=== PATIENT | male | born 1955 | race Caucasian/White ===

== ENCOUNTER 2017-06-23 16:46 | Inpatient (IN) | payer SELFPAY ==
[~2017-06-23] VITALS: Ht 175.3 cm; Wt 65.8 kg
--- NOTE | 2017-06-23 16:54 | PHYS DOC ---
Adult General Chief Complaint Chief Complaint: SHORTNESS OF BREATH HPI HPI Patient is a 61 year old male who presents with shortness of breath. He states he has a history of COPD and was on oxygen prior but hasn't been on it for a while since he said [facility] deformity did not need that or his inhalers any more. He denies any chest pain fevers chills nausea or vomiting. States his symptoms started about 30 minutes ago. He presents to ER with O2 sat of 79% on room air. Review of Systems Review of Systems Constitutional: Denies fever or chills [] Eyes: Denies change in visual acuity, redness, or eye pain [] HENT: Denies nasal congestion or sore throat [] Respiratory: Denies cough or positive for shortness of breath [] Cardiovascular: No additional information not addressed in HPI [] GI: Denies abdominal pain, nausea, vomiting, bloody stools or diarrhea [] : Denies dysuria or hematuria [] Musculoskeletal: Denies back pain or joint pain [] Integument: Denies rash or skin lesions [] Neurologic: Denies headache, focal weakness or sensory changes [] Endocrine: Denies polyuria or polydipsia [] All other systems were reviewed and found to be within normal limits, except as documented in this note. Current Medications Current Medications Current Medications Medications (Trade) Dose Ordered Sig/Becky Start Time Stop Time Status Last Admin Dose Admin Albuterol/ Ipratropium (Duoneb) 3 ml 1X ONCE 06/23/17 17:15 06/23/17 17:17 DC 06/23/17 17:23 3 ML Azithromycin 250 ml @ 250 mls/hr 1X ONCE 06/23/17 18:15 06/23/17 19:14 Methylprednisolone Sodium Succinate (SOLU-Medrol 125MG VIAL) 125 mg 1X ONCE 06/23/17 17:15 06/23/17 17:17 DC 06/23/17 17:56 125 MG Allergies Allergies Allergies Coded Allergies Type Severity Reaction Last Updated Verified No Known Drug Allergies 06/23/17 No Physical Exam Physical Exam Constitutional: Well developed, well nourished, no acute distress, non-toxic appearance. [] HENT: Normocephalic, atraumatic, bilateral external ears normal, oropharynx moist, no oral exudates, nose normal. [] Eyes: PERRLA, EOMI, conjunctiva normal, no discharge. [] Neck: Normal range of motion, no tenderness, supple, no stridor. [] Cardiovascular:Heart rate regular rhythm, no murmur [] Lungs & Thorax: Crease breath sounds on the right, left coarse with mild expiratory wheezing Abdomen: Bowel sounds normal, soft, no tenderness, no masses, no pulsatile masses. [] Skin: Warm, dry, no erythema, no rash. [] Back: No tenderness, no CVA tenderness. [] Extremities: No tenderness, no cyanosis, no clubbing, ROM intact, no edema. [] Neurologic: Alert and oriented X 3, normal motor function, normal sensory function, no focal deficits noted. [] Psychologic: Affect normal, judgement normal, mood normal. [] Current Patient Data Vital Signs Vital Signs Date Time Temp Pulse Resp B/P (MAP) Pulse Ox O2 Delivery O2 Flow Rate FiO2 06/23/17 17:20 94 Nasal Cannula 2.0 06/23/17 16:47 98.3 75 26 162/96 (118) 98.3 Lab Values Laboratory Tests Test 06/23/17 16:58 06/23/17 17:10 O2 Saturation 97 % (92-99) Arterial Blood pH 7.42 (7.35-7.45) Arterial Blood pCO2 at Patient Temp 51 mmHg (35-46) H Arterial Blood pO2 at Patient Temp 97 mmHg (65-108) Arterial Blood HCO3 32 mmol/L (21-28) H Arterial Blood Base Excess 6 mmol/L (-3-3) H FiO2 36.0 White Blood Count 7.0 x10^3/uL (4.0-11.0) Red Blood Count 5.38 x10^6/uL (4.30-5.70) Hemoglobin 15.1 g/dL (13.0-17.5) Hematocrit 47.8 % (39.0-53.0) Mean Corpuscular Volume 89 fL (79-100) Mean Corpuscular Hemoglobin 28 pg (25-35) Mean Corpuscular Hemoglobin Concent 32 g/dL (31-37) Red Cell Distribution Width 16.1 % (11.5-14.5) H Platelet Count 201 x10^3/uL (140-400) Neutrophils (%) (Auto) 79 % (31-73) H Lymphocytes (%) (Auto) 13 % (24-48) L Monocytes (%) (Auto) 5 % (0-9) Eosinophils (%) (Auto) 1 % (0-3) Basophils (%) (Auto) 1 % (0-3) Neutrophils # (Auto) 5.6 x10^3uL (1.8-7.7) Lymphocytes # (Auto) 0.9 x10^3/uL (1.0-4.8) L Monocytes # (Auto) 0.4 x10^3/uL (0.0-1.1) Eosinophils # (Auto) 0.1 x10^3/uL (0.0-0.7) Basophils # (Auto) 0.1 x10^3/uL (0.0-0.2) Sodium Level 142 mmol/L (136-145) Potassium Level 3.7 mmol/L (3.5-5.1) Chloride Level 105 mmol/L (98-107) Carbon Dioxide Level 34 mmol/L (21-32) H Anion Gap 3 (6-14) L Blood Urea Nitrogen 17 mg/dL (8-26) Creatinine 1.0 mg/dL (0.7-1.3) Estimated GFR (Cockcroft-Gault) 76.5 Glucose Level 73 mg/dL (70-99) Calcium Level 8.6 mg/dL (8.5-10.1) Magnesium Level 1.8 mg/dL (1.8-2.4) Total Bilirubin 0.8 mg/dL (0.2-1.0) Direct Bilirubin 0.3 mg/dL (0.0-0.2) H Aspartate Amino Transferase (AST) 36 U/L (15-37) Alanine Aminotransferase (ALT) 133 U/L (16-63) H Alkaline Phosphatase 69 U/L (46-116) Creatine Kinase 121 U/L (39-308) Creatine Kinase MB (Mass) 2.6 ng/mL (0.0-3.6) Creatine Kinase MB Relative Index 2.1 % (0-4) Troponin I Quantitative < 0.017 ng/mL (0.000-0.055) EH-Bad-X-Type Natriuretic Peptide 5402 pg/mL (0-124) H Total Protein 7.2 g/dL (6.4-8.2) Albumin 2.8 g/dL (3.4-5.0) L Thyroid Stimulating Hormone (TSH) 2.549 uIU/mL (0.358-3.74) Laboratory Tests 06/23/17 17:10 Laboratory Tests 06/23/17 17:10 EKG EKG G shows sinus rhythm with rate of [address] elevations, T-wave inversions noted in leads 2,3, aVF, right axis deviation noted, QTC 4 and 31 ms , as interpreted by me. Radiology/Procedures Radiology/Procedures Chest x-ray did not show any focal consolidations, bony abnormality's, pneumothorax, as interpreted by me. Impressions: Hypoxemia COPD exacerbation Course & Med Decision Making Course & Med Decision Making Pertinent Labs and Imaging studies reviewed. (See chart for details) Presented to the room air sat a 75%. He was put on 4 L an ABG was obtained. It was dropped back down to 2 L. He does not want to stay in the hospital so walking desat was performed and he dropped down to 83% on room air. He was given Solu-Medrol and azithromycin and DuoNeb nebs. He is on 2 L and resting comfortable at this time. He is being admitted to the hospitalist with pulmonary consultation. He is in stable condition at this time. Dragon Disclaimer Dragon Disclaimer This electronic medical record was generated, in whole or in part, using a voice recognition dictation system. Departure Departure Impression: Primary Impression: Hypoxia Disposition: 09 ADMITTED INPATIENT Admitting Physician: Other Condition: STABLE MELIA GAN MD Jun 23, 2017 16:54
[2017-06-23 17:11] LABS: HCO3 ABG 32 mmol/L (21-28); PCO2 ABG 51 mmHg (35-46); PH ABG 7.42 (7.35-7.45); PO2 ABG 97 mmHg (65-108); SAT O2 ABG 97 % (92-99)
[2017-06-23] MEDS ORDERED: methylPREDNISolone SOD SUCC PF 125 MG/2 ML VIAL. IV ONE (17:15)
[2017-06-23] MEDS ORDERED: IPRATRPIUM/ALBUTEROL 0.5/2.5MG 3 ML NEBU. NEB ONE (17:15)
[2017-06-23 17:22] LABS: BASO # 0.1 x10^3/uL (0.0-0.2); BASO % 1 % (0-3); EOS % 1 % (0-3); HEMATOCRIT 47.8 % (39.0-53.0); HEMOGLOBIN 15.1 g/dL (13.0-17.5); LYMPH # 0.9 x10^3/uL (1.0-4.8); LYMPH % 13 % (24-48); MEAN CORPUSCULAR HEMOGLOBIN 28 pg (25-35); MEAN CORPUSCULAR HGB CONC 32 g/dL (31-37); MEAN CORPUSCULAR VOLUME 89 fL (79-100); MONO % 5 % (0-9); NEUT % 79 % (31-73); PLATELET COUNT 201 x10^3/uL (140-400); RED BLOOD COUNT 5.38 x10^6/uL (4.30-5.70); RED CELL DISTRIBUTION WIDTH 16.1 % (11.5-14.5)
[2017-06-23 17:35] LABS: CALCIUM 8.6 mg/dL (8.5-10.1); GFR 76.5; POTASSIUM 3.7 mmol/L (3.5-5.1)
[2017-06-23 17:40] LABS: ALBUMIN 2.8 g/dL (3.4-5.0); DIRECT BILIRUBIN 0.3 mg/dL (0.0-0.2); MAGNESIUM 1.8 mg/dL (1.8-2.4); TOTAL BILIRUBIN 0.8 mg/dL (0.2-1.0); TOTAL PROTEIN 7.2 g/dL (6.4-8.2)
[2017-06-23 17:48] LABS: CKMB MASS 2.6 ng/mL (0.0-3.6)
[2017-06-23] MEDS ORDERED: AZITHRMYCN 500MG IVPB FOR OMNI 250 ML IV ONE (18:15)
[2017-06-23] MEDS ORDERED: ONDANSETRON PF 4 MG/2 ML VIAL. IV PRN (19:15)
[2017-06-23] MEDS ORDERED: ALBUTEROL SULFATE 2.5 MG/3 ML NEBU. NEB PRN (19:15)
[2017-06-23] MEDS ORDERED: GUAI600T47 PO (20:13)
[2017-06-23] MEDS ORDERED: IBUP100T7 PO (20:13)
[2017-06-23] MEDS ORDERED: PNEUMOCOCCAL VAX SCREEN BY RX. MC PRN (20:45)
[2017-06-23 21:00] VITALS: BP 131/90
--- NOTE | 2017-06-23 22:50 | HP ---
ADMIT DATE: 06/23/2017 CHIEF COMPLAINT: Shortness of breath. HISTORY OF PRESENT ILLNESS: The patient is a 61-year-old ex-smoker with COPD, who presented to the Emergency Room with a 2-day history of increased shortness of breath on exertion. He states that he had gone to in the past, had been diagnosed with COPD and actually had been placed on oxygen, which he no longer has. He also ran out of the inhalers as he no longer follows up and has not needed it for quite a while. He started having increased dyspnea on exertion about 2 days ago. Today, when he went to the grocery store, he had difficulties moving for any length of distance without having to stop and catch his breath. It took him quite a while to get through the store and go home and he decided to come to the Emergency Room at that time. In the Emergency Room, pulse ox on room air was 79 and chest x-ray was essentially clear showing signs of COPD with flattened hemidiaphragms. He was therefore admitted with COPD exacerbation. On further questioning, he relates that he has had episodes of leg swelling and this has been going on for months already and his brother had been advising him to limit salt intake. He denies ever having any heart history or any other medical problems. PAST MEDICAL HISTORY: COPD. FAMILY HISTORY: Grandfather with stroke. 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 Quit smoking 2 years ago. No alcohol, no drugs. ALLERGIES: No known drug allergies. MEDICATIONS: MAR reconciled with home medications. REVIEW OF SYSTEMS: Positive as per HPI. Rest of organ system review is negative. PHYSICAL EXAMINATION: VITAL SIGNS: Show blood pressure of 162/96, heart rate of 75, respiratory rate at 26, satting 75 on room air, 94 on 2 liters. He is afebrile. GENERAL: This is an ill-appearing 61-year-old gentleman, awake, alert, in mild distress. HEENT: Shows no scleral icterus. Oral mucosa is pink and moist. Dentition is poor. NECK: Supple. LUNGS: Clear, but have poor air movement bilaterally. HEART: Has regular rate and rhythm. ABDOMEN: Has positive bowel sounds, soft, nontender. EXTREMITIES: Show 2+ edema symmetrically bilaterally in lower extremities. SKIN: Warm, soft and dry without any rash. LABORATORY DATA: CBC with a WBC of 7.0, hemoglobin 15, platelets of 201. Chemistries with a BUN and creatinine of 17 and 1, normal electrolytes, CO2 at 34. LFTs within normal limits. ProBNP 5402, albumin at 2.8. Initial troponin is negative. IMAGING: Chest x-ray reviewed by myself showed mild cephalization, otherwise clear lung fair and flattened hemidiaphragms. ASSESSMENT AND PLAN: The patient is a 61-year-old ex-smoker, presenting with chronic obstructive pulmonary disease exacerbation, possibly brought on by upper respiratory infection that he has been nursing for the past week. He has been started on steroids, nebulizers and oxygen with improvement of his symptoms. Pulmonary consult will be obtained in the morning. The patient does have some mild symptoms of congestive heart failure. There is no heart history. We will obtain echocardiogram and cardiac consult in the morning to elucidate his status. Other labs show significant malnutrition with an albumin of only 2.8, although this may be partially affected by inflammation from bronchitis/chronic obstructive pulmonary disease. We will supplement his food intake with protein supplements. DELPHINE SCHULTZ MD DR: JAXSON/jens JOB#: [id number] / [id number] [place]
[2017-06-23 23:00] VITALS: BP 116/75
[2017-06-24 03:00] VITALS: BP 129/81
[2017-06-24 03:04] LABS: BASO % 0 % (0-3); EOS % 0 % (0-3); HEMATOCRIT 49.7 % (39.0-53.0); HEMOGLOBIN 15.7 g/dL (13.0-17.5); LYMPH # 0.3 x10^3/uL (1.0-4.8); LYMPH % 5 % (24-48); MEAN CORPUSCULAR HEMOGLOBIN 28 pg (25-35); MEAN CORPUSCULAR HGB CONC 32 g/dL (31-37); MEAN CORPUSCULAR VOLUME 89 fL (79-100); MONO % 1 % (0-9); NEUT % 94 % (31-73); PLATELET COUNT 201 x10^3/uL (140-400); RED BLOOD COUNT 5.57 x10^6/uL (4.30-5.70); RED CELL DISTRIBUTION WIDTH 16.9 % (11.5-14.5); WHITE BLOOD COUNT 5.3 x10^3/uL (4.0-11.0)
[2017-06-24 03:07] LABS: CALCIUM 8.2 mg/dL (8.5-10.1); GFR 76.5; POTASSIUM 4.6 mmol/L (3.5-5.1)
[2017-06-24 03:33] LABS: ANISOCYTOSIS SLIGHT; PLT ESTIMATE ADEQUATE (ADEQUATE); POIKILOCYTOSIS SLIGHT
--- NOTE | 2017-06-24 06:12 | EKG ---
[facility] [address] [place] [address] Test Date: 2017-06-23 Test Time: 17:37:23 Pat Name: NOLVIA SCHULTE Department: Room: 524 1 Gender: M Manager Pricing: : [phone] Requested By: MELIA GAN Order Number: [id number] Reading MD: Pilo Regan MD Measurements Intervals Davilla Rate: 61 P: 90 AR: 142 QRS: 141 QRSD: 104 T: -54 QT: 422 QTc: 431 Interpretive Statements SINUS RHYTHM LAE POOR R-WAVE PROGRESSION LIMB LEAD MISPLACEMENT Electronically Signed On 06-25-2017 16:35:06 COLLECTIONS AND ARCHIVES DIRECTOR by Pilo Regan MD
[2017-06-24 07:00] VITALS: BP 130/83
--- NOTE | 2017-06-24 08:35 | RAD ---
EXAM: Chest one view. HISTORY: Shortness of breath. COMPARISON: None. FINDINGS: A frontal view of the chest is obtained. Hyperinflation is consistent with chronic obstructive pulmonary disease. There are trace interstitial opacities in the bases. Small pleural effusions are suspected. There is no pneumothorax. Enlargement of the pulmonary arteries suggests pulmonary arterial hypertension. The heart is not enlarged. IMPRESSION: 1. Correlate for mild volume overload and trace pulmonary edema. 2. Chronic obstructive pulmonary disease with findings suggesting pulmonary arterial hypertension.
[2017-06-24] MEDS ORDERED: PNEUMOC CONJ VACC 23-VALENT 0.5 ML VIAL. VAX IM ONE (09:00)
[2017-06-24] MEDS ORDERED: PNEUMOCOCCAL VAX SCREEN BY RX. MC ONE (09:00)
--- NOTE | 2017-06-24 10:00 | CARD ---
APPROVED REPORT EXAM: Two-dimensional and M-mode echocardiogram with Doppler and color Doppler. Other Information Quality : Good INDICATION Acute NH 2D DIMENSIONS RVDd4.8 (2.9-3.5cm)Left Atrium(2D)3.4 (1.6-4.0cm) IVSd1.3 (0.7-1.1cm)Aortic Root(2D)2.9 (2.0-3.7cm) LVDd3.9 (3.9-5.9cm)LVOT Diameter2.0 (1.8-2.4cm) PWd1.2 (0.7-1.1cm)LVDs2.7 (2.5-4.0cm) FS (%) 30.5 %SV37.5 ml LVEF(%)58.6 (>50%) Aortic Valve AoV Peak Angel.102.9cm/sAoV VTI18.7cm AO Peak GR.4.2mmHgLVOT Peak Angel.97.0cm/s AO Mean GR.2mmHgAVA (VMAX)2.94cm2 NIA (VTI)2.80cm2 Mitral Valve MV E Unnqgtny43.0cm/sMV DECEL [id number] MV A [place]50.9cm/sE/A Ratio0.8 Tricuspid Valve TR P. Vaeuhcin051jm/sRAP AFNVQMEI8gcXm TR Peak Gr.[id number] LEFT VENTRICLE The left ventricle is normal size. There is mild concentric left ventricular hypertrophy. Left ventri doroteo systolic function is normal. The Ejection Fraction is 55%. Flattened interventricular septum cons istent right ventricle pressure/volume overload. Transmitral Doppler flow pattern is Grade I-abnormal relaxation pattern. RIGHT VENTRICLE The right ventricle is severely dilated. The right ventricular systolic function is normal. ATRIA The left atrium size is normal. The right atrium is severely dilated. Interatrial septum bowed toward the left, consistent with elevated right atrial pressures. AORTIC VALVE The aortic valve is calcified but opens well. Doppler and Color Flow revealed no significant aortic r egurgitation. There is no significant aortic valvular stenosis. MITRAL VALVE The mitral valve is calcified but opens well. There is no evidence of mitral valve prolapse. There is no mitral valve stenosis. Doppler and Color-flow revealed mild mitral regurgitation. TRICUSPID VALVE The tricuspid valve is normal in structure. Doppler and Color Flow revealed mild to moderate tricuspi d regurgitation. There is mild pulmonary hypertension. The PA pressure was estimated at 33 mmHg. Ther e is no tricuspid valve prolapse or vegetation. PULMONIC VALVE The pulmonic valve is mildly thickened. Doppler and Color Flow revealed mild pulmonic valvular regurg itation. There is no pulmonic valvular stenosis. GREAT VESSELS The aortic root is normal in size. The ascending aorta is normal in size. IVC apears dilated. PERICARDIAL EFFUSION There is no pleural effusion. There is no evidence of significant pericardial effusion. Critical Notification Critical Value: No <Conclusion> Left ventricle systolic function is normal. The Ejection Fraction is 55%. Flattened interventricular septum consistent right ventricle pressure/volume overload. Transmitral Doppler flow pattern is Grade I-abnormal relaxation pattern. The right ventricle is severely dilated. Mild mitral regurgitation. Mild to moderate tricuspid regurgitation. The PA pressure was estimated at 33 mmHg. There is no evidence of significant pericardial effusion.
--- NOTE | 2017-06-24 10:07 | PDOC2 ---
LULIValdemarHARRY Mikayla BURRING WHEEL OPERATOR 06/24/17 1007: CARDIAC CONSULT DATE OF CONSULT Date of Consult DATE: 06/24/17 TIME: 10:05 REASON FOR CONSULT Reason for Consult: ?CHF REFERRING PHYSICIAN Referring Physician: Miguel SOURCE Source: Chart review, Patient HISTORY OF PRESENT ILLNESS HISTORY OF PRESENT ILLNESS This is a pleasant 61 yo male admitted for complains of cSOA. Reports that in the past week, he reports that the distance of ambulation has decreased due to ASHLEY. Reports no CP, palpitations, nausea, chest pain. Denies any prior CAD, VTE. No recent infection, fever chills, and falls, injury or recent orthopaedic surgery,. In the last week he also noticed that both of his legs have became more swollen and tight. The right leg has more redness and tender. He does have COPD but untreated,. He has OA which he takes advil 40 mg bid otherwise he does not take any medications. PAST MEDICAL HISTORY Cardiovascular: No pertinent hx Pulmonary: COPD (untreated) CENTRAL NERVOUS SYSTEM: Other (No pertinent history) GI: No pertinent hx Heme/Onc: No pertinent hx Hepatobiliary: No pertinent hx Psych: No pertinent hx Musculoskeletal: Osteoarthritis Rheumatologic: No pertinent hx Infectious disease: No pertinent hx ENT: No pertinent hx Renal/: No pertinent hx Endocrine: No pertinent hx Dermatology: No pertinent hx PAST SURGICAL HISTORY Past Surgical History: No pertinent history FAMILY HISTORY Family History noncontributory to CV and VTE SOCIAL HISTORY Smoke: Quit (38 pk yr quit 2 yrs ago) ALCOHOL: none Drugs: None Lives: with Family (lives with father) CURRENT MEDICATIONS CURRENT MEDICATIONS Current Medications Medications (Trade) Dose Ordered Sig/Becky Route PRN Reason Start Time Stop Time Status Last Admin Dose Admin Albuterol/ Ipratropium (Duoneb) 3 ml 1X ONCE NEB 06/23/17 17:15 06/23/17 17:17 DC 06/23/17 17:23 Methylprednisolone Sodium Succinate (SOLU-Medrol 125MG VIAL) 125 mg 1X ONCE IV 06/23/17 17:15 06/23/17 17:17 DC 06/23/17 17:56 Azithromycin 250 ml @ 250 mls/hr 1X ONCE IV 06/23/17 18:15 06/23/17 19:14 DC 06/23/17 19:11 Pneumococcal Polyvalent Vaccine (Pneumovax 23) 0.5 ml ONCE ONCE VAX IM 06/24/17 09:00 06/24/17 09:01 DC 06/24/17 10:04 ALLERGIES ALLERGIES: Coded Allergies: No Known Drug Allergies (Unverified , 06/23/17) ROS Review of System 14 point ROS evaluated with pertinent positives noted per HPI PHYSICAL EXAM General: Alert, Oriented X3, Cooperative, No acute distress HEENT: Atraumatic Lungs: Other (basilar crackles and diminished) Heart: Regular rate (SR), Normal S1, Normal S2, Other (s4/ 2.6 systolic murmur to LLS border) Abdomen: Soft, No tenderness Extremities: No cyanosis, Other (3+ bilateral LE pitting edema with tenderness and erythema worse to RLE) Skin: No breakdown, No significant lesion Neuro: Normal speech, Sensation intact Psych/Mental Status: Mood NL MUSCULOSKELETAL: Osteoarthritic changes both hands VITALS VITALS Vital Signs Date Time Temp Pulse Resp B/P (MAP) Pulse Ox O2 Delivery O2 Flow Rate FiO2 06/24/17 07:00 97.1 72 18 130/83 (99) 96 Room Air 97.1 06/23/17 20:31 3.0 LABS Lab: Laboratory Tests Test 06/23/17 16:58 06/23/17 17:10 06/24/17 01:10 06/24/17 03:00 O2 Saturation 97 % (92-99) Arterial Blood pH 7.42 (7.35-7.45) Arterial Blood pCO2 at Patient Temp 51 mmHg (35-46) Arterial Blood pO2 at Patient Temp 97 mmHg (65-108) Arterial Blood HCO3 32 mmol/L (21-28) Arterial Blood Base Excess 6 mmol/L (-3-3) FiO2 36.0 White Blood Count 7.0 x10^3/uL (4.0-11.0) 5.3 x10^3/uL (4.0-11.0) Red Blood Count 5.38 x10^6/uL (4.30-5.70) 5.57 x10^6/uL (4.30-5.70) Hemoglobin 15.1 g/dL (13.0-17.5) 15.7 g/dL (13.0-17.5) Hematocrit 47.8 % (39.0-53.0) 49.7 % (39.0-53.0) Mean Corpuscular Volume 89 fL (79-100) 89 fL (79-100) Mean Corpuscular Hemoglobin 28 pg (25-35) 28 pg (25-35) Mean Corpuscular Hemoglobin Concent 32 g/dL (31-37) 32 g/dL (31-37) Red Cell Distribution Width 16.1 % (11.5-14.5) 16.9 % (11.5-14.5) Platelet Count 201 x10^3/uL (140-400) 201 x10^3/uL (140-400) Neutrophils (%) (Auto) 79 % (31-73) 94 % (31-73) Lymphocytes (%) (Auto) 13 % (24-48) 5 % (24-48) Monocytes (%) (Auto) 5 % (0-9) 1 % (0-9) Eosinophils (%) (Auto) 1 % (0-3) 0 % (0-3) Basophils (%) (Auto) 1 % (0-3) 0 % (0-3) Neutrophils # (Auto) 5.6 x10^3uL (1.8-7.7) 4.9 x10^3uL (1.8-7.7) Lymphocytes # (Auto) 0.9 x10^3/uL (1.0-4.8) 0.3 x10^3/uL (1.0-4.8) Monocytes # (Auto) 0.4 x10^3/uL (0.0-1.1) 0.0 x10^3/uL (0.0-1.1) Eosinophils # (Auto) 0.1 x10^3/uL (0.0-0.7) 0.0 x10^3/uL (0.0-0.7) Basophils # (Auto) 0.1 x10^3/uL (0.0-0.2) 0.0 x10^3/uL (0.0-0.2) Sodium Level 142 mmol/L (136-145) 140 mmol/L (136-145) Potassium Level 3.7 mmol/L (3.5-5.1) 4.6 mmol/L (3.5-5.1) Chloride Level 105 mmol/L (98-107) 104 mmol/L (98-107) Carbon Dioxide Level 34 mmol/L (21-32) 34 mmol/L (21-32) Anion Gap 3 (6-14) 2 (6-14) Blood Urea Nitrogen 17 mg/dL (8-26) 19 mg/dL (8-26) Creatinine 1.0 mg/dL (0.7-1.3) 1.0 mg/dL (0.7-1.3) Estimated GFR (Cockcroft-Gault) 76.5 76.5 Glucose Level 73 mg/dL (70-99) 252 mg/dL (70-99) Calcium Level 8.6 mg/dL (8.5-10.1) 8.2 mg/dL (8.5-10.1) Magnesium Level 1.8 mg/dL (1.8-2.4) Total Bilirubin 0.8 mg/dL (0.2-1.0) Direct Bilirubin 0.3 mg/dL (0.0-0.2) Aspartate Amino Transf (AST/SGOT) 36 U/L (15-37) Alanine Aminotransferase (ALT/SGPT) 133 U/L (16-63) Alkaline Phosphatase 69 U/L (46-116) Creatine Kinase 121 U/L (39-308) Creatine Kinase MB (Mass) 2.6 ng/mL (0.0-3.6) Creatine Kinase MB Relative Index 2.1 % (0-4) Troponin I Quantitative < 0.017 ng/mL (0.000-0.055) < 0.017 ng/mL (0.000-0.055) OA-Qyn-N-Type Natriuretic Peptide 5402 pg/mL (0-124) Total Protein 7.2 g/dL (6.4-8.2) Albumin 2.8 g/dL (3.4-5.0) Thyroid Stimulating Hormone (TSH) 2.549 uIU/mL (0.358-3.74) Segmented Neutrophils % 95 % (35-66) Lymphocytes % 4 % (24-48) Monocytes % 1 % (0-10) Platelet Estimate Adequate (ADEQUATE) Poikilocytosis Slight Anisocytosis Slight Test 06/24/17 07:05 Troponin I Quantitative < 0.017 ng/mL (0.000-0.055) ASSESSMENT/PLAN ASSESSMENT/PLAN 1. Dyspnea: TTE with abnormalities indicative of possible PE. EKG SR with RVH. 2. Bilateral LE swelling: Possible thrombophlebitis 3. Acute diastolic CHF: likely superimposed by pulmonary issues 4. AECOPD: unmedicated at home 5. Hyperglycemia: due to steroids. Recommendations 1. CTA chest. venous doppler 2. Consult pulmonary 3. Check lipid panel, TSH 4. Low dose x1 lasix. Problems: BEATRICE DARDEN MD 06/24/17 1226: CARDIAC CONSULT ALLERGIES ALLERGIES: Coded Allergies: No Known Drug Allergies (Unverified , 06/23/17) ASSESSMENT/PLAN ASSESSMENT/PLAN Pt. seen and examined. Agree with above [employer] REP note. Thanks for consultation. Echo with RV dilation but no pulmonary HTN, suspicious for thrombo-embolic disease. Will follow along. Problems: HARRY PARNELL APRN Jun 24, 2017 10:07 BEATRICE DARDEN MD Jun 24, 2017 12:26
[2017-06-24 11:00] VITALS: BP 132/74
[2017-06-24] MEDS ORDERED: FUROSEMIDE 20 MG/2 ML VIAL. IVP ONE (11:00)
[2017-06-24] MEDS ORDERED: HYDROcodone/APAP 5/325MG 1 TAB TABLET PO PRN (11:30)
[2017-06-24] MEDS ORDERED: IOHEXOL 300 MG/ML 100ML VIAL. IV ONE (11:30)
[2017-06-24] MEDS ORDERED: ACETAMINOPHEN 500 MG TABLET PO PRN (11:30)
[2017-06-24] MEDS ORDERED: CONTRAST GIVEN MC PRN (11:30)
[2017-06-24] MEDS ORDERED: ONDANSETRON PF 4 MG/2 ML VIAL. IV PRN (11:30)
[2017-06-24] MEDS ORDERED: IBUPROFEN 400 MG TABLET. PO PRN (11:30)
--- NOTE | 2017-06-24 12:52 | RAD ---
EXAM: CT ANGIOGRAPHY OF THE CHEST WITH AND WITHOUT INTRAVENOUS CONTRAST. HISTORY: Chronic obstructive pulmonary disease, right ventricular hypertrophy. Concern for pulmonary embolism. TECHNIQUE: Computed tomographic angiography of the chest was performed before and after the intravenous administration of 75 mL Omnipaque 300. 3-D maximum intensity projections were also performed. COMPARISON: None. FINDINGS: Images of the upper abdomen reveal no acute abnormality. Bone windows reveal no suspicious lesions. There is respiratory motion artifact in the bases. This limits sensitivity for small peripheral pulmonary emboli in this territory. No pulmonary emboli are seen. The main pulmonary artery is enlarged at 3.6 cm. There is no aortic dissection or aneurysm. There are no pathologically enlarged mediastinal or axillary lymph nodes. There are small bilateral pleural effusions. There is no pericardial effusion. The heart is mildly enlarged in a predominantly right-sided pattern. There is severe centrilobular emphysema. Mild groundglass opacities in the right base may indicate atelectasis or scarring. IMPRESSION: 1. Findings of pulmonary arterial hypertension. No pulmonary embolism. 2. Severe centrilobular emphysema. 3. Mild cardiomegaly. Small bilateral pleural effusions. *One or more of the following individualized dose reduction techniques were utilized for this examination: 1. Automated exposure control. 2. Adjustment of the mA and/or kV according to patient size. 3. Use of iterative reconstruction technique.
--- NOTE | 2017-06-24 13:25 | PDOC ---
PROGRESS NOTES Chief Complaint Chief Complaint 1. COPD exacerbation, prev smoker, acute bronchitis 2. SIRS poa 3. leukocytosis and hyperglycemia on steroids 4. Bilateral LE swelling 5. Acute diastolic HF 6. MIld to mod pcm History of Present Illness History of Present Illness On 2-3 LNC Was not on O2 at home Dec BS, minimal exchange No inc in SOA, CP BS high on solu PLAN: Agree witH CTA and Venous dopplers and pulmo consult Empric abx Ok fo rmucinex Add PT./OT Vitals Vitals Vital Signs Date Time Temp Pulse Resp B/P (MAP) Pulse Ox O2 Delivery O2 Flow Rate FiO2 06/24/17 12:37 94 Nasal Cannula 3.0 06/24/17 11:00 97.4 70 18 132/74 (93) 97.4 Physical Exam General: Alert, Oriented X3, Cooperative, No acute distress Heart: Regular rate (SR), Normal S1, Normal S2, Other (s4/ 2.6 systolic murmur to LLS border) Abdomen: Soft, No tenderness Extremities: No cyanosis, Other (3+ bilateral LE pitting edema with tenderness and erythema worse to RLE) Skin: No breakdown, No significant lesion Labs LABS Laboratory Tests Test 06/23/17 16:58 06/23/17 17:10 06/24/17 01:10 06/24/17 03:00 O2 Saturation 97 % (92-99) Arterial Blood pH 7.42 (7.35-7.45) Arterial Blood pCO2 at Patient Temp 51 mmHg (35-46) Arterial Blood pO2 at Patient Temp 97 mmHg (65-108) Arterial Blood HCO3 32 mmol/L (21-28) Arterial Blood Base Excess 6 mmol/L (-3-3) FiO2 36.0 White Blood Count 7.0 x10^3/uL (4.0-11.0) 5.3 x10^3/uL (4.0-11.0) Red Blood Count 5.38 x10^6/uL (4.30-5.70) 5.57 x10^6/uL (4.30-5.70) Hemoglobin 15.1 g/dL (13.0-17.5) 15.7 g/dL (13.0-17.5) Hematocrit 47.8 % (39.0-53.0) 49.7 % (39.0-53.0) Mean Corpuscular Volume 89 fL (79-100) 89 fL (79-100) Mean Corpuscular Hemoglobin 28 pg (25-35) 28 pg (25-35) Mean Corpuscular Hemoglobin Concent 32 g/dL (31-37) 32 g/dL (31-37) Red Cell Distribution Width 16.1 % (11.5-14.5) 16.9 % (11.5-14.5) Platelet Count 201 x10^3/uL (140-400) 201 x10^3/uL (140-400) Neutrophils (%) (Auto) 79 % (31-73) 94 % (31-73) Lymphocytes (%) (Auto) 13 % (24-48) 5 % (24-48) Monocytes (%) (Auto) 5 % (0-9) 1 % (0-9) Eosinophils (%) (Auto) 1 % (0-3) 0 % (0-3) Basophils (%) (Auto) 1 % (0-3) 0 % (0-3) Neutrophils # (Auto) 5.6 x10^3uL (1.8-7.7) 4.9 x10^3uL (1.8-7.7) Lymphocytes # (Auto) 0.9 x10^3/uL (1.0-4.8) 0.3 x10^3/uL (1.0-4.8) Monocytes # (Auto) 0.4 x10^3/uL (0.0-1.1) 0.0 x10^3/uL (0.0-1.1) Eosinophils # (Auto) 0.1 x10^3/uL (0.0-0.7) 0.0 x10^3/uL (0.0-0.7) Basophils # (Auto) 0.1 x10^3/uL (0.0-0.2) 0.0 x10^3/uL (0.0-0.2) Sodium Level 142 mmol/L (136-145) 140 mmol/L (136-145) Potassium Level 3.7 mmol/L (3.5-5.1) 4.6 mmol/L (3.5-5.1) Chloride Level 105 mmol/L (98-107) 104 mmol/L (98-107) Carbon Dioxide Level 34 mmol/L (21-32) 34 mmol/L (21-32) Anion Gap 3 (6-14) 2 (6-14) Blood Urea Nitrogen 17 mg/dL (8-26) 19 mg/dL (8-26) Creatinine 1.0 mg/dL (0.7-1.3) 1.0 mg/dL (0.7-1.3) Estimated GFR (Cockcroft-Gault) 76.5 76.5 Glucose Level 73 mg/dL (70-99) 252 mg/dL (70-99) Calcium Level 8.6 mg/dL (8.5-10.1) 8.2 mg/dL (8.5-10.1) Magnesium Level 1.8 mg/dL (1.8-2.4) Total Bilirubin 0.8 mg/dL (0.2-1.0) Direct Bilirubin 0.3 mg/dL (0.0-0.2) Aspartate Amino Transf (AST/SGOT) 36 U/L (15-37) Alanine Aminotransferase (ALT/SGPT) 133 U/L (16-63) Alkaline Phosphatase 69 U/L (46-116) Creatine Kinase 121 U/L (39-308) Creatine Kinase MB (Mass) 2.6 ng/mL (0.0-3.6) Creatine Kinase MB Relative Index 2.1 % (0-4) Troponin I Quantitative < 0.017 ng/mL (0.000-0.055) < 0.017 ng/mL (0.000-0.055) XB-Kmi-U-Type Natriuretic Peptide 5402 pg/mL (0-124) Total Protein 7.2 g/dL (6.4-8.2) Albumin 2.8 g/dL (3.4-5.0) Thyroid Stimulating Hormone (TSH) 2.549 uIU/mL (0.358-3.74) Segmented Neutrophils % 95 % (35-66) Lymphocytes % 4 % (24-48) Monocytes % 1 % (0-10) Platelet Estimate Adequate (ADEQUATE) Poikilocytosis Slight Anisocytosis Slight Test 06/24/17 07:05 Troponin I Quantitative < 0.017 ng/mL (0.000-0.055) Review of Systems Review of Systems no inc in soa, cp, coughing, no abd pain or emesis Assessment and Plan Assessmemt and Plan Problems Medical Problems: (1) Hypoxia Status: Acute Problems: Comment Review of Relevant I have reviewed the following items leyda (where applicable) has been applied. Labs Laboratory Tests Test 06/23/17 16:58 06/23/17 17:10 06/24/17 01:10 06/24/17 03:00 O2 Saturation 97 % (92-99) Arterial Blood pH 7.42 (7.35-7.45) Arterial Blood pCO2 at Patient Temp 51 mmHg (35-46) Arterial Blood pO2 at Patient Temp 97 mmHg (65-108) Arterial Blood HCO3 32 mmol/L (21-28) Arterial Blood Base Excess 6 mmol/L (-3-3) FiO2 36.0 White Blood Count 7.0 x10^3/uL (4.0-11.0) 5.3 x10^3/uL (4.0-11.0) Red Blood Count 5.38 x10^6/uL (4.30-5.70) 5.57 x10^6/uL (4.30-5.70) Hemoglobin 15.1 g/dL (13.0-17.5) 15.7 g/dL (13.0-17.5) Hematocrit 47.8 % (39.0-53.0) 49.7 % (39.0-53.0) Mean Corpuscular Volume 89 fL (79-100) 89 fL (79-100) Mean Corpuscular Hemoglobin 28 pg (25-35) 28 pg (25-35) Mean Corpuscular Hemoglobin Concent 32 g/dL (31-37) 32 g/dL (31-37) Red Cell Distribution Width 16.1 % (11.5-14.5) 16.9 % (11.5-14.5) Platelet Count 201 x10^3/uL (140-400) 201 x10^3/uL (140-400) Neutrophils (%) (Auto) 79 % (31-73) 94 % (31-73) Lymphocytes (%) (Auto) 13 % (24-48) 5 % (24-48) Monocytes (%) (Auto) 5 % (0-9) 1 % (0-9) Eosinophils (%) (Auto) 1 % (0-3) 0 % (0-3) Basophils (%) (Auto) 1 % (0-3) 0 % (0-3) Neutrophils # (Auto) 5.6 x10^3uL (1.8-7.7) 4.9 x10^3uL (1.8-7.7) Lymphocytes # (Auto) 0.9 x10^3/uL (1.0-4.8) 0.3 x10^3/uL (1.0-4.8) Monocytes # (Auto) 0.4 x10^3/uL (0.0-1.1) 0.0 x10^3/uL (0.0-1.1) Eosinophils # (Auto) 0.1 x10^3/uL (0.0-0.7) 0.0 x10^3/uL (0.0-0.7) Basophils # (Auto) 0.1 x10^3/uL (0.0-0.2) 0.0 x10^3/uL (0.0-0.2) Sodium Level 142 mmol/L (136-145) 140 mmol/L (136-145) Potassium Level 3.7 mmol/L (3.5-5.1) 4.6 mmol/L (3.5-5.1) Chloride Level 105 mmol/L (98-107) 104 mmol/L (98-107) Carbon Dioxide Level 34 mmol/L (21-32) 34 mmol/L (21-32) Anion Gap 3 (6-14) 2 (6-14) Blood Urea Nitrogen 17 mg/dL (8-26) 19 mg/dL (8-26) Creatinine 1.0 mg/dL (0.7-1.3) 1.0 mg/dL (0.7-1.3) Estimated GFR (Cockcroft-Gault) 76.5 76.5 Glucose Level 73 mg/dL (70-99) 252 mg/dL (70-99) Calcium Level 8.6 mg/dL (8.5-10.1) 8.2 mg/dL (8.5-10.1) Magnesium Level 1.8 mg/dL (1.8-2.4) Total Bilirubin 0.8 mg/dL (0.2-1.0) Direct Bilirubin 0.3 mg/dL (0.0-0.2) Aspartate Amino Transf (AST/SGOT) 36 U/L (15-37) Alanine Aminotransferase (ALT/SGPT) 133 U/L (16-63) Alkaline Phosphatase 69 U/L (46-116) Creatine Kinase 121 U/L (39-308) Creatine Kinase MB (Mass) 2.6 ng/mL (0.0-3.6) Creatine Kinase MB Relative Index 2.1 % (0-4) Troponin I Quantitative < 0.017 ng/mL (0.000-0.055) < 0.017 ng/mL (0.000-0.055) BY-Iws-B-Type Natriuretic Peptide 5402 pg/mL (0-124) Total Protein 7.2 g/dL (6.4-8.2) Albumin 2.8 g/dL (3.4-5.0) Thyroid Stimulating Hormone (TSH) 2.549 uIU/mL (0.358-3.74) Segmented Neutrophils % 95 % (35-66) Lymphocytes % 4 % (24-48) Monocytes % 1 % (0-10) Platelet Estimate Adequate (ADEQUATE) Poikilocytosis Slight Anisocytosis Slight Test 06/24/17 07:05 Troponin I Quantitative < 0.017 ng/mL (0.000-0.055) Laboratory Tests Test 06/23/17 16:58 06/23/17 17:10 06/24/17 01:10 06/24/17 03:00 O2 Saturation 97 % (92-99) Arterial Blood pH 7.42 (7.35-7.45) Arterial Blood pCO2 at Patient Temp 51 mmHg (35-46) Arterial Blood pO2 at Patient Temp 97 mmHg (65-108) Arterial Blood HCO3 32 mmol/L (21-28) Arterial Blood Base Excess 6 mmol/L (-3-3) FiO2 36.0 White Blood Count 7.0 x10^3/uL (4.0-11.0) 5.3 x10^3/uL (4.0-11.0) Red Blood Count 5.38 x10^6/uL (4.30-5.70) 5.57 x10^6/uL (4.30-5.70) Hemoglobin 15.1 g/dL (13.0-17.5) 15.7 g/dL (13.0-17.5) Hematocrit 47.8 % (39.0-53.0) 49.7 % (39.0-53.0) Mean Corpuscular Volume 89 fL (79-100) 89 fL (79-100) Mean Corpuscular Hemoglobin 28 pg (25-35) 28 pg (25-35) Mean Corpuscular Hemoglobin Concent 32 g/dL (31-37) 32 g/dL (31-37) Red Cell Distribution Width 16.1 % (11.5-14.5) 16.9 % (11.5-14.5) Platelet Count 201 x10^3/uL (140-400) 201 x10^3/uL (140-400) Neutrophils (%) (Auto) 79 % (31-73) 94 % (31-73) Lymphocytes (%) (Auto) 13 % (24-48) 5 % (24-48) Monocytes (%) (Auto) 5 % (0-9) 1 % (0-9) Eosinophils (%) (Auto) 1 % (0-3) 0 % (0-3) Basophils (%) (Auto) 1 % (0-3) 0 % (0-3) Neutrophils # (Auto) 5.6 x10^3uL (1.8-7.7) 4.9 x10^3uL (1.8-7.7) Lymphocytes # (Auto) 0.9 x10^3/uL (1.0-4.8) 0.3 x10^3/uL (1.0-4.8) Monocytes # (Auto) 0.4 x10^3/uL (0.0-1.1) 0.0 x10^3/uL (0.0-1.1) Eosinophils # (Auto) 0.1 x10^3/uL (0.0-0.7) 0.0 x10^3/uL (0.0-0.7) Basophils # (Auto) 0.1 x10^3/uL (0.0-0.2) 0.0 x10^3/uL (0.0-0.2) Sodium Level 142 mmol/L (136-145) 140 mmol/L (136-145) Potassium Level 3.7 mmol/L (3.5-5.1) 4.6 mmol/L (3.5-5.1) Chloride Level 105 mmol/L (98-107) 104 mmol/L (98-107) Carbon Dioxide Level 34 mmol/L (21-32) 34 mmol/L (21-32) Anion Gap 3 (6-14) 2 (6-14) Blood Urea Nitrogen 17 mg/dL (8-26) 19 mg/dL (8-26) Creatinine 1.0 mg/dL (0.7-1.3) 1.0 mg/dL (0.7-1.3) Estimated GFR (Cockcroft-Gault) 76.5 76.5 Glucose Level 73 mg/dL (70-99) 252 mg/dL (70-99) Calcium Level 8.6 mg/dL (8.5-10.1) 8.2 mg/dL (8.5-10.1) Magnesium Level 1.8 mg/dL (1.8-2.4) Total Bilirubin 0.8 mg/dL (0.2-1.0) Direct Bilirubin 0.3 mg/dL (0.0-0.2) Aspartate Amino Transf (AST/SGOT) 36 U/L (15-37) Alanine Aminotransferase (ALT/SGPT) 133 U/L (16-63) Alkaline Phosphatase 69 U/L (46-116) Creatine Kinase 121 U/L (39-308) Creatine Kinase MB (Mass) 2.6 ng/mL (0.0-3.6) Creatine Kinase MB Relative Index 2.1 % (0-4) Troponin I Quantitative < 0.017 ng/mL (0.000-0.055) < 0.017 ng/mL (0.000-0.055) DG-Uyf-R-Type Natriuretic Peptide 5402 pg/mL (0-124) Total Protein 7.2 g/dL (6.4-8.2) Albumin 2.8 g/dL (3.4-5.0) Thyroid Stimulating Hormone (TSH) 2.549 uIU/mL (0.358-3.74) Segmented Neutrophils % 95 % (35-66) Lymphocytes % 4 % (24-48) Monocytes % 1 % (0-10) Platelet Estimate Adequate (ADEQUATE) Poikilocytosis Slight Anisocytosis Slight Test 06/24/17 07:05 Troponin I Quantitative < 0.017 ng/mL (0.000-0.055) Medications Current Medications Albuterol/ Ipratropium (Duoneb) 3 ml 1X ONCE NEB Last administered on 17:23; Start 06/23/17 at 17:15; Stop 06/23/17 at 17:17; Status DC Methylprednisolone Sodium Succinate (SOLU-Medrol 125MG VIAL) 125 mg 1X ONCE IV Last administered on 06/23/17 17:56; Start 06/23/17 at 17:15; Stop at 17:17; Status DC Azithromycin 250 ml @ 250 mls/hr 1X ONCE IV Last administered on 06/23/17 19:11; Start 06/23/17 at 18:15; Stop 06/23/17 at 19:14; Status DC Ondansetron HCl (Zofran) 4 mg PRN Q8HRS PRN IV NAUSEA/VOMITING; Start at 19:15; Stop 06/24/17 at 19:14 Albuterol Sulfate (Ventolin Neb Soln) 2.5 mg PRN Q6HRS PRN NEB soa; Start at 19:15 Pneumococcal Polyvalent Vaccine (Do NOT chart on this placeholder) 1 each 1X ONCE MC ; Start 06/24/17 at 09:00; Stop 06/24/17 at 09:00; Status DC Pneumococcal Polyvalent Vaccine (Do NOT chart on this placeholder) 1 each PRN 1X PRN MC SEE COMMENTS; Start 06/23/17 at 20:45; Status UNV Pneumococcal Polyvalent Vaccine (Pneumovax 23) 0.5 ml ONCE ONCE VAX IM Last administered on 06/24/17 10:04; Start 06/24/17 at 09:00; Stop 06/24/17 at 09 :01; Status DC Furosemide (Lasix) 20 mg 1X ONCE IVP Last administered on 06/24/17 10:53; Start 06/24/17 at 11:00; Stop 06/24/17 at 11:01; Status DC Iohexol (Omnipaque 300 Mg/ml) 75 ml 1X ONCE IV Last administered on 12:19; Start 06/24/17 at 11:30; Stop 06/24/17 at 11:31; Status DC Info (Do NOT chart on this entry -- for MONITORING) 1 each PRN DAILY PRN MC SEE COMMENTS; Start 06/24/17 at 11:30; Stop 06/26/17 at 11:29 Albuterol/ Ipratropium (Duoneb) 3 ml RTQID NEB ; Start 06/24/17 at 12:00 Ondansetron HCl (Zofran) 4 mg PRN Q6HRS PRN IV NAUSEA/VOMITING; Start at 11:30 Acetaminophen (Tylenol) 500 mg PRN Q6HRS PRN PO MILD PAIN / TEMP; Start at 11:30 Ibuprofen (Motrin) 400 mg PRN Q6HRS PRN PO INFLAMMATION; Start 06/24/17 at 11: 30 Acetaminophen/ Hydrocodone Bitart (Lortab 5/325) 1 tab PRN Q4HRS PRN PO PAIN; Start 06/24/17 at 11:30 Guaifenesin (Mucinex) 600 mg BID PO ; Start 06/24/17 at 12:30 Active Scripts Active Reported Mucinex (Guaifenesin) 600 Mg Tablet.er 1 Tab PO DAILY Advil (Ibuprofen) 100 Mg Tab.chew 200 Mg PO Q6HRS PRN Vitals/I & O Vital Sign - Last 24 Hours 06/23/17 06/23/17 06/23/17 06/23/17 16:47 17:20 18:00 18:30 Temp 98.3 98.3 Pulse 75 64 64 Resp 22 B/P (MAP) 162/96 (118) 156/90 (112) 170/93 (118) Pulse Ox 75 94 93 93 O2 Delivery Room Air Nasal Cannula Nasal Cannula Nasal Cannula O2 Flow Rate 2.0 2.0 4.5 06/23/17 06/23/17 06/23/17 06/23/17 19:00 19:30 20:31 21:00 Temp 96.1 96.1 Pulse 62 64 73 Resp 17 B/P (MAP) 155/90 (111) 142/90 (107) 131/90 (104) Pulse Ox 99 100 93 O2 Delivery Nasal Cannula Nasal Cannula Nasal Cannula Room Air O2 Flow Rate 4.5 4.5 3.0 1106/24/17 06/24/17 06/24/17 23:00 03:00 07:00 08:00 Temp 96.1 96.7 97.1 96.1 96.7 97.1 Pulse 71 69 72 Resp 17 17 18 B/P (MAP) 116/75 (89) 129/81 (97) 130/83 (99) Pulse Ox 94 95 96 O2 Delivery Room Air Room Air Room Air Nasal Cannula O2 Flow Rate 2.0 06/24/17 06/24/17 11:00 12:37 Temp 97.4 97.4 Pulse 70 Resp 18 B/P (MAP) 132/74 (93) Pulse Ox 95 94 O2 Delivery Room Air Nasal Cannula O2 Flow Rate 3.0 Intake and Output 06/23/17 06/23/17 06/24/17 15:00 23:00 07:00 Intake Total 250 ml 600 ml Balance 250 ml 600 ml THEO HINOJOSA MD Jun 24, 2017 13:25
[2017-06-24 15:00] VITALS: BP 102/63
--- NOTE | 2017-06-24 16:06 | PDOC ---
PULMONARY PROGRESS NOTES Vitals Vital Signs Date Time Temp Pulse Resp B/P (MAP) Pulse Ox O2 Delivery O2 Flow Rate FiO2 06/24/17 12:37 94 Nasal Cannula 3.0 06/24/17 11:00 97.4 70 18 132/74 (93) 97.4 Labs Laboratory Tests Test 06/23/17 16:58 06/23/17 17:10 06/24/17 01:10 06/24/17 03:00 O2 Saturation 97 % (92-99) Arterial Blood pH 7.42 (7.35-7.45) Arterial Blood pCO2 at Patient Temp 51 mmHg (35-46) Arterial Blood pO2 at Patient Temp 97 mmHg (65-108) Arterial Blood HCO3 32 mmol/L (21-28) Arterial Blood Base Excess 6 mmol/L (-3-3) FiO2 36.0 White Blood Count 7.0 x10^3/uL (4.0-11.0) 5.3 x10^3/uL (4.0-11.0) Red Blood Count 5.38 x10^6/uL (4.30-5.70) 5.57 x10^6/uL (4.30-5.70) Hemoglobin 15.1 g/dL (13.0-17.5) 15.7 g/dL (13.0-17.5) Hematocrit 47.8 % (39.0-53.0) 49.7 % (39.0-53.0) Mean Corpuscular Volume 89 fL (79-100) 89 fL (79-100) Mean Corpuscular Hemoglobin 28 pg (25-35) 28 pg (25-35) Mean Corpuscular Hemoglobin Concent 32 g/dL (31-37) 32 g/dL (31-37) Red Cell Distribution Width 16.1 % (11.5-14.5) 16.9 % (11.5-14.5) Platelet Count 201 x10^3/uL (140-400) 201 x10^3/uL (140-400) Neutrophils (%) (Auto) 79 % (31-73) 94 % (31-73) Lymphocytes (%) (Auto) 13 % (24-48) 5 % (24-48) Monocytes (%) (Auto) 5 % (0-9) 1 % (0-9) Eosinophils (%) (Auto) 1 % (0-3) 0 % (0-3) Basophils (%) (Auto) 1 % (0-3) 0 % (0-3) Neutrophils # (Auto) 5.6 x10^3uL (1.8-7.7) 4.9 x10^3uL (1.8-7.7) Lymphocytes # (Auto) 0.9 x10^3/uL (1.0-4.8) 0.3 x10^3/uL (1.0-4.8) Monocytes # (Auto) 0.4 x10^3/uL (0.0-1.1) 0.0 x10^3/uL (0.0-1.1) Eosinophils # (Auto) 0.1 x10^3/uL (0.0-0.7) 0.0 x10^3/uL (0.0-0.7) Basophils # (Auto) 0.1 x10^3/uL (0.0-0.2) 0.0 x10^3/uL (0.0-0.2) Sodium Level 142 mmol/L (136-145) 140 mmol/L (136-145) Potassium Level 3.7 mmol/L (3.5-5.1) 4.6 mmol/L (3.5-5.1) Chloride Level 105 mmol/L (98-107) 104 mmol/L (98-107) Carbon Dioxide Level 34 mmol/L (21-32) 34 mmol/L (21-32) Anion Gap 3 (6-14) 2 (6-14) Blood Urea Nitrogen 17 mg/dL (8-26) 19 mg/dL (8-26) Creatinine 1.0 mg/dL (0.7-1.3) 1.0 mg/dL (0.7-1.3) Estimated GFR (Cockcroft-Gault) 76.5 76.5 Glucose Level 73 mg/dL (70-99) 252 mg/dL (70-99) Calcium Level 8.6 mg/dL (8.5-10.1) 8.2 mg/dL (8.5-10.1) Magnesium Level 1.8 mg/dL (1.8-2.4) Total Bilirubin 0.8 mg/dL (0.2-1.0) Direct Bilirubin 0.3 mg/dL (0.0-0.2) Aspartate Amino Transf (AST/SGOT) 36 U/L (15-37) Alanine Aminotransferase (ALT/SGPT) 133 U/L (16-63) Alkaline Phosphatase 69 U/L (46-116) Creatine Kinase 121 U/L (39-308) Creatine Kinase MB (Mass) 2.6 ng/mL (0.0-3.6) Creatine Kinase MB Relative Index 2.1 % (0-4) Troponin I Quantitative < 0.017 ng/mL (0.000-0.055) < 0.017 ng/mL (0.000-0.055) HY-Uwj-X-Type Natriuretic Peptide 5402 pg/mL (0-124) Total Protein 7.2 g/dL (6.4-8.2) Albumin 2.8 g/dL (3.4-5.0) Thyroid Stimulating Hormone (TSH) 2.549 uIU/mL (0.358-3.74) Segmented Neutrophils % 95 % (35-66) Lymphocytes % 4 % (24-48) Monocytes % 1 % (0-10) Platelet Estimate Adequate (ADEQUATE) Poikilocytosis Slight Anisocytosis Slight Test 06/24/17 07:05 Troponin I Quantitative < 0.017 ng/mL (0.000-0.055) Laboratory Tests Test 06/23/17 16:58 06/23/17 17:10 06/24/17 01:10 06/24/17 03:00 O2 Saturation 97 % (92-99) Arterial Blood pH 7.42 (7.35-7.45) Arterial Blood pCO2 at Patient Temp 51 mmHg (35-46) Arterial Blood pO2 at Patient Temp 97 mmHg (65-108) Arterial Blood HCO3 32 mmol/L (21-28) Arterial Blood Base Excess 6 mmol/L (-3-3) FiO2 36.0 White Blood Count 7.0 x10^3/uL (4.0-11.0) 5.3 x10^3/uL (4.0-11.0) Red Blood Count 5.38 x10^6/uL (4.30-5.70) 5.57 x10^6/uL (4.30-5.70) Hemoglobin 15.1 g/dL (13.0-17.5) 15.7 g/dL (13.0-17.5) Hematocrit 47.8 % (39.0-53.0) 49.7 % (39.0-53.0) Mean Corpuscular Volume 89 fL (79-100) 89 fL (79-100) Mean Corpuscular Hemoglobin 28 pg (25-35) 28 pg (25-35) Mean Corpuscular Hemoglobin Concent 32 g/dL (31-37) 32 g/dL (31-37) Red Cell Distribution Width 16.1 % (11.5-14.5) 16.9 % (11.5-14.5) Platelet Count 201 x10^3/uL (140-400) 201 x10^3/uL (140-400) Neutrophils (%) (Auto) 79 % (31-73) 94 % (31-73) Lymphocytes (%) (Auto) 13 % (24-48) 5 % (24-48) Monocytes (%) (Auto) 5 % (0-9) 1 % (0-9) Eosinophils (%) (Auto) 1 % (0-3) 0 % (0-3) Basophils (%) (Auto) 1 % (0-3) 0 % (0-3) Neutrophils # (Auto) 5.6 x10^3uL (1.8-7.7) 4.9 x10^3uL (1.8-7.7) Lymphocytes # (Auto) 0.9 x10^3/uL (1.0-4.8) 0.3 x10^3/uL (1.0-4.8) Monocytes # (Auto) 0.4 x10^3/uL (0.0-1.1) 0.0 x10^3/uL (0.0-1.1) Eosinophils # (Auto) 0.1 x10^3/uL (0.0-0.7) 0.0 x10^3/uL (0.0-0.7) Basophils # (Auto) 0.1 x10^3/uL (0.0-0.2) 0.0 x10^3/uL (0.0-0.2) Sodium Level 142 mmol/L (136-145) 140 mmol/L (136-145) Potassium Level 3.7 mmol/L (3.5-5.1) 4.6 mmol/L (3.5-5.1) Chloride Level 105 mmol/L (98-107) 104 mmol/L (98-107) Carbon Dioxide Level 34 mmol/L (21-32) 34 mmol/L (21-32) Anion Gap 3 (6-14) 2 (6-14) Blood Urea Nitrogen 17 mg/dL (8-26) 19 mg/dL (8-26) Creatinine 1.0 mg/dL (0.7-1.3) 1.0 mg/dL (0.7-1.3) Estimated GFR (Cockcroft-Gault) 76.5 76.5 Glucose Level 73 mg/dL (70-99) 252 mg/dL (70-99) Calcium Level 8.6 mg/dL (8.5-10.1) 8.2 mg/dL (8.5-10.1) Magnesium Level 1.8 mg/dL (1.8-2.4) Total Bilirubin 0.8 mg/dL (0.2-1.0) Direct Bilirubin 0.3 mg/dL (0.0-0.2) Aspartate Amino Transf (AST/SGOT) 36 U/L (15-37) Alanine Aminotransferase (ALT/SGPT) 133 U/L (16-63) Alkaline Phosphatase 69 U/L (46-116) Creatine Kinase 121 U/L (39-308) Creatine Kinase MB (Mass) 2.6 ng/mL (0.0-3.6) Creatine Kinase MB Relative Index 2.1 % (0-4) Troponin I Quantitative < 0.017 ng/mL (0.000-0.055) < 0.017 ng/mL (0.000-0.055) XG-Knz-C-Type Natriuretic Peptide 5402 pg/mL (0-124) Total Protein 7.2 g/dL (6.4-8.2) Albumin 2.8 g/dL (3.4-5.0) Thyroid Stimulating Hormone (TSH) 2.549 uIU/mL (0.358-3.74) Segmented Neutrophils % 95 % (35-66) Lymphocytes % 4 % (24-48) Monocytes % 1 % (0-10) Platelet Estimate Adequate (ADEQUATE) Poikilocytosis Slight Anisocytosis Slight Test 06/24/17 07:05 Troponin I Quantitative < 0.017 ng/mL (0.000-0.055) Medications Active Scripts Medications Dose Route/Sig Max Daily Dose Days Date Category Mucinex (Guaifenesin) 600 Mg Tablet.er 1 Tab PO DAILY 06/23/17 Reported Advil (Ibuprofen) 100 Mg Tab.chew 200 Mg PO Q6HRS PRN 06/23/17 Reported Impression . FULL CONSULT DICTATED AECOPD SEE ORDERS CONSUELO PONCE MD Jun 24, 2017 16:06
[2017-06-24] MEDS: DOXYCYCLINE HYCLATE 100 MG TABLET PO SCH ×2 (16:17→20:17)
--- NOTE | 2017-06-24 16:21 | RAD ---
EXAM: Bilateral lower extremity venous Doppler. HISTORY: Bilateral lower extremity pain/swelling. COMPARISON: None. FINDINGS: Grayscale and Doppler analysis of the both lower extremity deep venous systems was performed with graded compression and augmentation. The common femoral, greater saphenous, superficial femoral, popliteal and calf veins were assessed. There is no evidence of deep venous thrombosis. Subcutaneous edema is noted. There is a small popliteal cyst on the left. IMPRESSION: 1. No evidence of deep venous thrombosis. 2. Small popliteal cyst on the left.
[2017-06-24] MEDS: predniSONE 20 MG TABLET PO SCH (17:06)
[2017-06-24 19:00] VITALS: BP 115/71
--- NOTE | 2017-06-24 19:24 | CONS ---
DATE OF CONSULTATION: 06/24/2017 ATTENDING PHYSICIAN: Dr. Rivera. REASON FOR CONSULTATION: The patient seen in Pulmonary consultation at the request of Dr. Rivera for increasing shortness of air. HISTORY OF PRESENT ILLNESS: The patient is a 61-year-old that had quit smoking approximately a year ago, ran out of his inhalers, was utilizing oxygen, but lost his insurance. He does not have oxygen at home, presented with a 2- to 3-day history of increasing shortness of breath, no fever, chills, cough mostly productive of discolored sputum. The patient was evaluated and admitted. I was asked to see him in consultation. Since his admission, he underwent a CT angiogram revealing no evidence of pulmonary emboli. There was a severe centrilobular emphysema, small bilateral pleural effusions, cardiomegaly. Lower extremity ultrasounds have been ordered. PAST MEDICAL HISTORY: Chronic respiratory failure, COPD, tobacco dependence, in remission. FAMILY HISTORY: Grandfather with stroke. No family history of early lung disorders. SOCIAL HISTORY: He is currently unemployed, quit tobacco approximately 1-2 years ago. Denies any alcohol intake. REVIEW OF SYSTEMS: As indicated above; otherwise, a 10-point system was reviewed and negative. ALLERGIES: No known drug allergies. PHYSICAL EXAMINATION: GENERAL: Individual appearing older than stated age, in no respiratory distress, currently on 2 liters of oxygen supplementation. HEENT: Eyes: The sclerae were nonicteric. NECK: Jugular venous distention was not elevated. No lymphadenopathy. CHEST: Full expansion. LUNGS: Poor airway flow with no wheezes. CARDIOVASCULAR: Regular rate and rhythm with S1, S2, no S3. ABDOMEN: Soft, nontender, nondistended. EXTREMITIES: No clubbing, cyanosis or edema. NEUROLOGIC: The patient was awake, alert, following commands. A detailed neuro exam was not performed. LABORATORY DATA: Reviewed. Arterial blood gas revealed compensated hypercapnia, pH of 7.41, PaCO2 of 51, PaO2 of 97, bicarb of 32. IMPRESSION: 1. Acute respiratory failure secondary to acute exacerbation of chronic obstructive pulmonary disease. 2. Acute exacerbation of chronic obstructive pulmonary disease. 3. Tobacco dependence in remission. 4. Abnormal CT revealing centrilobular emphysema. No evidence of pulmonary embolism. There was also evidence of pulmonary arterial hypertension. The main pulmonary artery is enlarged. 5. Cardiomegaly. PLAN: 1. The patient was instructed on the importance of avoiding tobacco. Continue current bronchodilators. 2. Will more than likely require oxygen, which will be a challenge as a result of being self insured. 3. Discharge home within the next 24 hours on prednisone and doxycycline. I do appreciate the privilege in sharing in the patient's care. CONSUELO PONCE MD DR: PATRICK/jens JOB#: [id number] / [id number]
[2017-06-24] MEDS: IPRATRPIUM/ALBUTEROL 0.5/2.5MG 3 ML NEBU. NEB SCH (19:45)
[2017-06-24 23:00] VITALS: BP 127/56
[2017-06-25 03:00] VITALS: BP 115/77
[2017-06-25 07:00] VITALS: BP 103/65
[2017-06-25] MEDS: IPRATRPIUM/ALBUTEROL 0.5/2.5MG 3 ML NEBU. NEB SCH ×4 (07:47→19:37)
[2017-06-25] MEDS: DOXYCYCLINE HYCLATE 100 MG TABLET PO SCH ×2 (08:43→20:44)
[2017-06-25] MEDS: predniSONE 20 MG TABLET PO SCH (08:43)
[2017-06-25] MEDS ORDERED: PRED20TA PO (10:29)
[2017-06-25] MEDS ORDERED: DOXY100C2 PO (10:29)
--- NOTE | 2017-06-25 10:32 | PDOC3 ---
Discharge Summary Visit Information Date of Admission: Jun 23, 2017 Date of Discharge: Jun 25, 2017 Admitting Diagnosis Comment: 1. COPD exacerbation, prev smoker, acute bronchitis 2. SIRS poa 3. leukocytosis and hyperglycemia on steroids 4. Bilateral LE swelling 5. Acute diastolic HF 6. MIld to mod pcm Final Diagnosis Problems Medical Problems: (1) Hypoxia Status: Acute Brief Hospital Course Allergies Allergies Coded Allergies Type Severity Reaction Last Updated Verified No Known Drug Allergies 06/23/17 No Vital Signs Vital Signs Date Time Temp Pulse Resp B/P (MAP) Pulse Ox O2 Delivery O2 Flow Rate FiO2 06/25/17 08:00 Nasal Cannula 3.0 06/25/17 07:49 71 06/25/17 07:00 98.6 79 18 103/65 (78) 98.6 Lab Results Laboratory Tests Test 06/23/17 16:58 06/23/17 17:10 06/24/17 01:10 06/24/17 03:00 O2 Saturation 97 % (92-99) Arterial Blood pH 7.42 (7.35-7.45) Arterial Blood pCO2 at Patient Temp 51 mmHg (35-46) Arterial Blood pO2 at Patient Temp 97 mmHg (65-108) Arterial Blood HCO3 32 mmol/L (21-28) Arterial Blood Base Excess 6 mmol/L (-3-3) FiO2 36.0 White Blood Count 7.0 x10^3/uL (4.0-11.0) 5.3 x10^3/uL (4.0-11.0) Red Blood Count 5.38 x10^6/uL (4.30-5.70) 5.57 x10^6/uL (4.30-5.70) Hemoglobin 15.1 g/dL (13.0-17.5) 15.7 g/dL (13.0-17.5) Hematocrit 47.8 % (39.0-53.0) 49.7 % (39.0-53.0) Mean Corpuscular Volume 89 fL (79-100) 89 fL (79-100) Mean Corpuscular Hemoglobin 28 pg (25-35) 28 pg (25-35) Mean Corpuscular Hemoglobin Concent 32 g/dL (31-37) 32 g/dL (31-37) Red Cell Distribution Width 16.1 % (11.5-14.5) 16.9 % (11.5-14.5) Platelet Count 201 x10^3/uL (140-400) 201 x10^3/uL (140-400) Neutrophils (%) (Auto) 79 % (31-73) 94 % (31-73) Lymphocytes (%) (Auto) 13 % (24-48) 5 % (24-48) Monocytes (%) (Auto) 5 % (0-9) 1 % (0-9) Eosinophils (%) (Auto) 1 % (0-3) 0 % (0-3) Basophils (%) (Auto) 1 % (0-3) 0 % (0-3) Neutrophils # (Auto) 5.6 x10^3uL (1.8-7.7) 4.9 x10^3uL (1.8-7.7) Lymphocytes # (Auto) 0.9 x10^3/uL (1.0-4.8) 0.3 x10^3/uL (1.0-4.8) Monocytes # (Auto) 0.4 x10^3/uL (0.0-1.1) 0.0 x10^3/uL (0.0-1.1) Eosinophils # (Auto) 0.1 x10^3/uL (0.0-0.7) 0.0 x10^3/uL (0.0-0.7) Basophils # (Auto) 0.1 x10^3/uL (0.0-0.2) 0.0 x10^3/uL (0.0-0.2) Sodium Level 142 mmol/L (136-145) 140 mmol/L (136-145) Potassium Level 3.7 mmol/L (3.5-5.1) 4.6 mmol/L (3.5-5.1) Chloride Level 105 mmol/L (98-107) 104 mmol/L (98-107) Carbon Dioxide Level 34 mmol/L (21-32) 34 mmol/L (21-32) Anion Gap 3 (6-14) 2 (6-14) Blood Urea Nitrogen 17 mg/dL (8-26) 19 mg/dL (8-26) Creatinine 1.0 mg/dL (0.7-1.3) 1.0 mg/dL (0.7-1.3) Estimated GFR (Cockcroft-Gault) 76.5 76.5 Glucose Level 73 mg/dL (70-99) 252 mg/dL (70-99) Calcium Level 8.6 mg/dL (8.5-10.1) 8.2 mg/dL (8.5-10.1) Magnesium Level 1.8 mg/dL (1.8-2.4) Total Bilirubin 0.8 mg/dL (0.2-1.0) Direct Bilirubin 0.3 mg/dL (0.0-0.2) Aspartate Amino Transf (AST/SGOT) 36 U/L (15-37) Alanine Aminotransferase (ALT/SGPT) 133 U/L (16-63) Alkaline Phosphatase 69 U/L (46-116) Creatine Kinase 121 U/L (39-308) Creatine Kinase MB (Mass) 2.6 ng/mL (0.0-3.6) Creatine Kinase MB Relative Index 2.1 % (0-4) Troponin I Quantitative < 0.017 ng/mL (0.000-0.055) < 0.017 ng/mL (0.000-0.055) QP-Pnb-D-Type Natriuretic Peptide 5402 pg/mL (0-124) Total Protein 7.2 g/dL (6.4-8.2) Albumin 2.8 g/dL (3.4-5.0) Thyroid Stimulating Hormone (TSH) 2.549 uIU/mL (0.358-3.74) Segmented Neutrophils % 95 % (35-66) Lymphocytes % 4 % (24-48) Monocytes % 1 % (0-10) Platelet Estimate Adequate (ADEQUATE) Poikilocytosis Slight Anisocytosis Slight Test 06/24/17 07:05 Troponin I Quantitative < 0.017 ng/mL (0.000-0.055) Brief Hospital Course Mr. Addison is a 61 old male,SP, has a smokers body habitus, admitted for hypoxia, no O2 at home, Emphysematous lungs on CT, no PE< Dopplers neg, no PNA< co managed with pulmo, Needs to cease smoking, PO doxy and albuterol HFA and pred taper given Dec BS, some minimal wheezing, NO PCP, needs to establish [place] nd examined Proc; none COnsults: pulmo Discharge Information Condition at Discharge: Improved, Stable Disposition/Orders: D/C to Home Scheduled Guaifenesin (Mucinex), 1 TAB PO DAILY, (Reported) Scheduled PRN Ibuprofen (Advil), 200 MG PO Q6HRS PRN for PAIN, (Reported) THEO HINOJOSA MD Jun 25, 2017 10:32
--- NOTE | 2017-06-25 10:53 | PDOC ---
VIK DURANT APRN 06/25/17 1053: CARDIO Progress Notes Date and Time Date of Service 06/25/17 Time of Evaluation 1045 Subjective Subjective: No Chest Pain, No Palpitations, Other (breathing improved) Vitals Vitals Vital Signs Date Time Temp Pulse Resp B/P (MAP) Pulse Ox O2 Delivery O2 Flow Rate FiO2 06/25/17 08:00 Nasal Cannula 3.0 06/25/17 07:49 71 06/25/17 07:00 98.6 79 18 103/65 (78) 98.6 Weight Weight [ ] Input and Output Intake and Output Intake and Output 06/25/17 07:00 Intake Total 1680 ml Output Total 2340 ml Balance -660 ml Intake Oral 1680 ml Output Urine Total 2340 ml # Voids 1 Physical Exam HEENT: Neck Supple W Full Motion Chest: Symmetric LUNGS: Other (diminished bases ) Heart: S1S2, RRR Abdomen: Soft N/T Extremities: Other (trace bilateral LE edema ) Neurology: alert, oriented, follow commands Assessment Assessment 1. Dyspnea: Echo with RV dilation, no pulm HTN. CTA with severe emphysema and pulm HTN, no PE. 2. Bilateral LE edema 3. Acute diastolic CHF; LVEF 55% 4. AECOPD Recommendations Supportive care 2 Gm Na dietary restriction Consider low-dose maintenance diuretic BEATRICE DARDEN MD 06/25/17 1605: CARDIO Progress Notes Plan Plan Pt. seen and examined. Agree with above INPATIENT PHARMACIST note. DC on low dose lasix. He will ultimately need aids social worker for free clinic etc as he does not have insurance. VIK DURANT APRN Jun 25, 2017 10:53 BEATRICE DARDEN MD Jun 25, 2017 16:05
[2017-06-25 11:00] VITALS: BP 125/78
[2017-06-25 15:00] VITALS: BP 109/58
--- NOTE | 2017-06-25 15:44 | PDOC ---
PULMONARY PROGRESS NOTES Subjective PT WITH NO INCREASE SOA FEELS BETTER Vitals Vital Signs Date Time Temp Pulse Resp B/P (MAP) Pulse Ox O2 Delivery O2 Flow Rate FiO2 06/25/17 15:14 Room Air 06/25/17 15:00 98.2 78 18 109/58 (75) 91 98.2 06/25/17 11:39 3.0 Lungs: Clear Cardiovascular: S1, S2 Abdomen: Soft Neuro Exam: Alert Extremities: No Edema Skin: Warm Labs Laboratory Tests Test 06/23/17 16:58 06/23/17 17:10 06/24/17 01:10 06/24/17 03:00 O2 Saturation 97 % (92-99) Arterial Blood pH 7.42 (7.35-7.45) Arterial Blood pCO2 at Patient Temp 51 mmHg (35-46) Arterial Blood pO2 at Patient Temp 97 mmHg (65-108) Arterial Blood HCO3 32 mmol/L (21-28) Arterial Blood Base Excess 6 mmol/L (-3-3) FiO2 36.0 White Blood Count 7.0 x10^3/uL (4.0-11.0) 5.3 x10^3/uL (4.0-11.0) Red Blood Count 5.38 x10^6/uL (4.30-5.70) 5.57 x10^6/uL (4.30-5.70) Hemoglobin 15.1 g/dL (13.0-17.5) 15.7 g/dL (13.0-17.5) Hematocrit 47.8 % (39.0-53.0) 49.7 % (39.0-53.0) Mean Corpuscular Volume 89 fL (79-100) 89 fL (79-100) Mean Corpuscular Hemoglobin 28 pg (25-35) 28 pg (25-35) Mean Corpuscular Hemoglobin Concent 32 g/dL (31-37) 32 g/dL (31-37) Red Cell Distribution Width 16.1 % (11.5-14.5) 16.9 % (11.5-14.5) Platelet Count 201 x10^3/uL (140-400) 201 x10^3/uL (140-400) Neutrophils (%) (Auto) 79 % (31-73) 94 % (31-73) Lymphocytes (%) (Auto) 13 % (24-48) 5 % (24-48) Monocytes (%) (Auto) 5 % (0-9) 1 % (0-9) Eosinophils (%) (Auto) 1 % (0-3) 0 % (0-3) Basophils (%) (Auto) 1 % (0-3) 0 % (0-3) Neutrophils # (Auto) 5.6 x10^3uL (1.8-7.7) 4.9 x10^3uL (1.8-7.7) Lymphocytes # (Auto) 0.9 x10^3/uL (1.0-4.8) 0.3 x10^3/uL (1.0-4.8) Monocytes # (Auto) 0.4 x10^3/uL (0.0-1.1) 0.0 x10^3/uL (0.0-1.1) Eosinophils # (Auto) 0.1 x10^3/uL (0.0-0.7) 0.0 x10^3/uL (0.0-0.7) Basophils # (Auto) 0.1 x10^3/uL (0.0-0.2) 0.0 x10^3/uL (0.0-0.2) Sodium Level 142 mmol/L (136-145) 140 mmol/L (136-145) Potassium Level 3.7 mmol/L (3.5-5.1) 4.6 mmol/L (3.5-5.1) Chloride Level 105 mmol/L (98-107) 104 mmol/L (98-107) Carbon Dioxide Level 34 mmol/L (21-32) 34 mmol/L (21-32) Anion Gap 3 (6-14) 2 (6-14) Blood Urea Nitrogen 17 mg/dL (8-26) 19 mg/dL (8-26) Creatinine 1.0 mg/dL (0.7-1.3) 1.0 mg/dL (0.7-1.3) Estimated GFR (Cockcroft-Gault) 76.5 76.5 Glucose Level 73 mg/dL (70-99) 252 mg/dL (70-99) Calcium Level 8.6 mg/dL (8.5-10.1) 8.2 mg/dL (8.5-10.1) Magnesium Level 1.8 mg/dL (1.8-2.4) Total Bilirubin 0.8 mg/dL (0.2-1.0) Direct Bilirubin 0.3 mg/dL (0.0-0.2) Aspartate Amino Transf (AST/SGOT) 36 U/L (15-37) Alanine Aminotransferase (ALT/SGPT) 133 U/L (16-63) Alkaline Phosphatase 69 U/L (46-116) Creatine Kinase 121 U/L (39-308) Creatine Kinase MB (Mass) 2.6 ng/mL (0.0-3.6) Creatine Kinase MB Relative Index 2.1 % (0-4) Troponin I Quantitative < 0.017 ng/mL (0.000-0.055) < 0.017 ng/mL (0.000-0.055) YQ-Dpr-V-Type Natriuretic Peptide 5402 pg/mL (0-124) Total Protein 7.2 g/dL (6.4-8.2) Albumin 2.8 g/dL (3.4-5.0) Thyroid Stimulating Hormone (TSH) 2.549 uIU/mL (0.358-3.74) Segmented Neutrophils % 95 % (35-66) Lymphocytes % 4 % (24-48) Monocytes % 1 % (0-10) Platelet Estimate Adequate (ADEQUATE) Poikilocytosis Slight Anisocytosis Slight Test 06/24/17 07:05 Troponin I Quantitative < 0.017 ng/mL (0.000-0.055) Medications Active Scripts Medications Dose Route/Sig Max Daily Dose Days Date Category Mucinex (Guaifenesin) 600 Mg Tablet.er 1 Tab PO DAILY 06/23/17 Reported Advil (Ibuprofen) 100 Mg Tab.chew 200 Mg PO Q6HRS PRN 06/23/17 Reported Impression . 1. Acute respiratory failure secondary to acute exacerbation of chronic obstructive pulmonary disease. 2. Acute exacerbation of chronic obstructive pulmonary disease. 3. Tobacco dependence in remission. 4. Abnormal CT revealing centrilobular emphysema. No evidence of pulmonary embolism. There was also evidence of pulmonary arterial hypertension. The main pulmonary artery is enlarged. 5. Cardiomegaly. Plan . D/C HOME MAINTENANCE CHIEF SAMPLES OF SPIRIVA FROM MY OFFICE PRED TAPER AND ANTIBX CONSUELO PONCE MD Jun 25, 2017 15:44
[2017-06-25] MEDS ORDERED: FUROSEMIDE 20 MG/2 ML VIAL. IVP ONE (16:15)
[2017-06-25 23:00] VITALS: BP 115/68
[2017-06-26 03:00] VITALS: BP 118/68
[2017-06-26 07:00] VITALS: BP 116/75
[2017-06-26] MEDS: IPRATRPIUM/ALBUTEROL 0.5/2.5MG 3 ML NEBU. NEB SCH ×3 (07:16→14:53)
[2017-06-26] MEDS: DOXYCYCLINE HYCLATE 100 MG TABLET PO SCH (07:59)
[2017-06-26] MEDS: predniSONE 20 MG TABLET PO SCH (08:02)
[2017-06-26] MEDS ORDERED: FUROSEMIDE 40 MG TABLET. PO SCH (09:00)
--- NOTE | 2017-06-26 11:15 | PDOC ---
Provider Note Provider Note Pt did not dc yesterday as did not have a ride Also racheal wanted lasix 40 PO qdaily to go home with I have written script plus some Kcl tabs too while on lasix Pt seen and examined HE is working on getting insurance Brother quin pick him up today THEO HINOJOSA MD Jun 26, 2017 11:14
[2017-06-26 11:38] VITALS: BP 132/72
[2017-06-26 15:00] VITALS: BP 124/67
== END 2017-06-26 15:55 | disposition home or self-care (01) | DRG 291 ==
LOC: ER 16:46 → 5 NORTH 18:00
PROVIDERS: ADMIT Internal Medicine Hematology & Oncology; ATTEND Internal Medicine Hematology & Oncology
DX: I50.31 Acute diastolic (congestive) heart failure (principal); J96.21 Acute and chronic respiratory failure with hypoxia; I27.21 Secondary pulmonary arterial hypertension; R65.10 Systemic inflammatory response syndrome (SIRS) of non-infectious origin without acute organ dysfunction; E44.0 Moderate protein-calorie malnutrition; J44.0 Chronic obstructive pulmonary disease with (acute) lower respiratory infection; J44.1 Chronic obstructive pulmonary disease with (acute) exacerbation; R73.9 Hyperglycemia, unspecified; J20.9 Acute bronchitis, unspecified; D72.829 Elevated white blood cell count, unspecified; M19.90 Unspecified osteoarthritis, unspecified site; T38.0X5A Adverse effect of glucocorticoids and synthetic analogues, initial encounter; F17.201 Nicotine dependence, unspecified, in remission; Z82.3 Family history of stroke; Z68.21 Body mass index [BMI] 21.0-21.9, adult; Z56.0 Unemployment, unspecified; Z23 Encounter for immunization
CPT/HCPCS: 36415; 36600; 71010; 71275; 80048; 80076; 82553; 82805; 83735; 83880; 84443; 84484; 85007; 85025; 90732; 93005; 93306; 93970; 94620; 94640; 94760; 96365; 96375; J0456; J2930; J7512; J7620; Q9967; 99285-25

== ENCOUNTER 2018-01-01 16:35 | Emergency (ER) | payer SELFPAY | END 2018-01-01 17:33 | disposition home or self-care (01) | LOC: ER 16:35 | DX: S50.812A Abrasion of left forearm, initial encounter (principal); S50.811A Abrasion of right forearm, initial encounter; R06.02 Shortness of breath; J44.9 Chronic obstructive pulmonary disease, unspecified; R23.4 Changes in skin texture; M19.90 Unspecified osteoarthritis, unspecified site; X58.XXXA Exposure to other specified factors, initial encounter; Y93.89 Activity, other specified; Y92.89 Other specified places as the place of occurrence of the external cause; Y99.8 Other external cause status | CPT/HCPCS: 93005; 99283; 99284 ==